=== PATIENT | male | born 1955 | race Caucasian/White ===

== ENCOUNTER → 2018-05-16 | Outpatient (CLI) | payer OTHER ==
--- NOTE | 2018-05-16 17:12 | US ---
EXAM DESCRIPTION: Breast,Right: Ultrasound CLINICAL HISTORY: 63 yearsMaleBREAST MASS. Palpable mass approximately 3 cm from the right nipple at the 700 clock location. A small skin lesion is noted. Patient says there was drainage from this lesion. Decreasing tenderness and smaller mass since taking Bactrim x 2 days. COMPARISON: None. TECHNIQUE: Transcutaneous scanning of the right breast utilizing alejandre-scale and Doppler modes. Scanning performed by the director epidemiology and Dr. Sorenson. FINDINGS: Irregular echogenic material in the subcutaneous adipose tissue within the mass is palpable. This material is approximately 3.2 x 3.2 cm. Small fluid collection less than 2 cm maximum length. A small anechoic tract extends to the skin corresponding to the skin lesion. IMPRESSION: Subcutaneous echogenic lesion, approximately 3 cm widest dimension, containing minimal fluid corresponding to palpable mass inferior and slightly lateral to the right nipple. Interpreted to be resolving inflammation from hair follicle or sweat gland. The FINDINGS and the FOLLOW-UP plan were reviewed in person with the patient after the examination. Written communication explaining the IMPRESSION and FOLLOW-UP will be mailed to the patient and referring care provider. Electronically signed by: Stevie Sorenson MD 05/16/2018 5:11 PM CDT
== END ==
LOC: US 09:46
PROVIDERS: ATTEND Family Medicine
DX: N63.0 Unspecified lump in unspecified breast (principal)

== ENCOUNTER → 2019-10-28 | Outpatient (CLI) | payer OTHER ==
--- NOTE | 2019-10-29 07:27 | US ---
EXAM DESCRIPTION: Liver CLINICAL HISTORY: 64 years Male, abdominal pain COMPARISON: None. FINDINGS: Right upper quadrant hepatic sonography demonstrates proximal aorta are normal at 2.7 cm in size with the distal aorta poorly visualized. The liver is borderline enlarged at 15.8 cm in length. Region of the pancreas is unremarkable with an echogenic appearance without focal cystic or solid mass. Liver is very difficult to penetrate and visualization of the posterior liver is limited. Fatty and/or fibrous infiltration of the liver suspected. Multiple simple cysts small to modest in size including the left lobe of the liver are noted gallbladder is distended and folded without evidence of wall thickening stones or acoustic shadowing. Pericholecystic edema is not apparent. A bilobed or two adjacent cysts in the right lobe of the liver with the entire complex measuring 2.8 x 5.4 cm is noted. Common bile duct is visualized in the hannah hepatis at 4.5 mm in diameter without intrahepatic dilatation. The right kidney is 11.3 cm in length. No cyst or mass or hydronephrosis noted. IMPRESSION: 1. Borderline hepatomegaly with very difficult to penetrate liver and difficult visualization of the posterior liver most consistent with fatty infiltration. 2. Small to modest benign cysts within the left and right lobe of the liver without solid mass identified. 3. Folded but otherwise normal-appearing gallbladder and normal biliary ductal system and right kidney. Electronically signed by: Toby Cruz MD 10/29/2019 7:26 AM [facility] [employer]ATE[employer]NALYSIS
== END ==
LOC: US 14:32
PROVIDERS: ATTEND Family Medicine
DX: R16.0 Hepatomegaly, not elsewhere classified (principal); K76.89 Other specified diseases of liver

== ENCOUNTER → 2019-11-14 | Outpatient (CLI) | payer OTHER ==
--- NOTE | 2019-11-14 19:58 | CT ---
EXAM DESCRIPTION: Abdomen/Pelvis w/wo Contrast: Computed Tomography. CLINICAL HISTORY: GENERALIZED ABDOMINAL PAIN COMPARISON: None. TECHNIQUE: Spiral-axial scans at 5 x 5 mm intervals through the abdomen and pelvis before and after 75 mL Optiray 320 nonionic IV contrast. Spiral-axial 0.6 x 5.0 mm axial reconstructions noncontrast. No oral contrast. Coronal and sagittal 2.0 mm reconstructions after delay. 5 mm Delayed helical-axial scans, liver through the pubic symphysis. No adverse reactions. Total Exam DLP 4301.83 mGy - cm. This exam was performed according to our departmental CT dose-optimization program which includes automated exposure control, adjustment of the mA and/or kV according to patient size and/or use of iterative reconstruction technique; to reduce radiation dose to as low as reasonably achievable (ALARA). FINDINGS: Lung bases and pleura: Atelectasis in the right lower lobe bibasilar pleural thickening more on the left. Liver, Stomach, Spleen, Adrenal Glands: Liver with heterogeneous low-density involving most of the liver with peripheral fatty sparing. Long axis right lobe 18.5 cm. Multiple fluid density objects in the liver consistent with cysts. Cysts at the inferior tip displacing the hepatic capsule. Heterogeneous enhancement of the liver with no cyst enhancement. Stomach and adrenal glands and spleen are negative. Pancreas, Gallbladder, Ducts: Gallbladder slightly elongated but not dilated and normal density of the surrounding fat. Duct and pancreas are negative. Kidneys and Ureters: Bilateral kidneys small with cortical thinning but no radiodense stones or hydronephrosis. Mesentery: No free fluid or free air. Aorta: Normal outer caliber with minimal atherosclerotic calcification. Small Bowel: Minimal gas and fluid distally but normal caliber throughout. Terminal Ileum/Cecum: Normal caliber. Also normal caliber of the appendix with no surrounding inflammatory changes or lymph nodes. Colon: Diverticula distal descending colon and sigmoid colon with no complications. No distention at any level. Pelvic Organs: No free fluid. Prostate gland impressing on the base of the urinary bladder. Spine and Bony Pelvis: Minimal bilateral hip arthrosis. No significant lumbar spondylosis. Abdominal Wall/Back Soft Tissues: Bilateral inguinal nodes. IMPRESSION: 1. Hepatomegaly and steatosis with multiple cysts. Decreased overall contrast enhancement. Smooth capsule with no ascites. 2. Minimal cortical thinning and decreased size of the bilateral kidneys. 3. Diverticulosis of the distal colon without complications. Electronically signed by: Stevie Sorenson MD 11/14/2019 7:56 PM COSMETIC ACCOUNT COORDINATOR
== END ==
LOC: CT 09:42
PROVIDERS: ATTEND Family Medicine
DX: K57.30 Diverticulosis of large intestine without perforation or abscess without bleeding (principal); K76.0 Fatty (change of) liver, not elsewhere classified; K76.89 Other specified diseases of liver; N28.9 Disorder of kidney and ureter, unspecified

== ENCOUNTER 2019-11-27 05:39 | Day surgery (SDC) | payer OTHER ==
[2019-11-27] MEDS ORDERED: LIDOCAINE 1% 10 ML VIAL INJ ONE (07:00)
[2019-11-27] MEDS ORDERED: GLYCOPYRROLATE 0.2 MG/ML VIAL ONE (07:00)
[2019-11-27] MEDS ORDERED: SODIUM CHLORIDE 0.9% 50 ML VIAL ONE (07:00)
[2019-11-27] MEDS ORDERED: PROPOFOL 200 MG/20 ML VIAL IV ONE (07:00)
[2019-11-27] MEDS ORDERED: LACTATED RINGERS 1,000 ML ONE (07:02)
[2019-11-27] MEDS ORDERED: MIDAZOLAM INJ 2 MG/2 ML VIAL ONE (07:51)
[2019-11-27] MEDS ORDERED: KETAMINE HCL 100 MG/ML VIAL ONE (07:55)
--- NOTE | 2019-11-27 10:07 | OP ---
DATE OF PROCEDURE: 11/27/19 PREOPERATIVE DIAGNOSIS: 1. History of colonic polyps. POSTOPERATIVE DIAGNOSIS: 1. Normal colon. PROCEDURE: 1. Colonoscopy. SURGEON: Rene Warner MD PROCEDURE: General anesthesia was induced in the lateral position. Digital rectal exam was normal. The colonoscope was inserted without difficulty and passed to the cecum identified by the appendiceal orifice and ileocecal valve. Upon careful withdrawal with an adequate prep, no polyps or inflammation was seen. The patient was having pain in the right side. Nothing abnormal was seen in the ascending or transverse colon. The rectum also appeared normal. He had very small hemorrhoids. The patient tolerated the procedure and was taken to Recovery to be discharged. #[id number] cc: Toby Selby MD MTDD
[2019-11-28 10:23] VITALS: TEMP 98.2
[2019-11-28 10:29] VITALS: BP 123/83; O2SAT 96
== END 2019-11-27 09:50 | disposition home or self-care (01) ==
LOC: AMB 05:39
PROVIDERS: ATTEND Surgery
DX: Z09 Encounter for follow-up examination after completed treatment for conditions other than malignant neoplasm (principal); K64.9 Unspecified hemorrhoids; E11.9 Type 2 diabetes mellitus without complications; M10.9 Gout, unspecified; E78.00 Pure hypercholesterolemia, unspecified; E03.9 Hypothyroidism, unspecified; Z88.5 Allergy status to narcotic agent; Z86.010 Personal history of colon polyps; Z79.82 Long term (current) use of aspirin; Z79.84 Long term (current) use of oral hypoglycemic drugs; Z79.899 Other long term (current) drug therapy
CPT/HCPCS: 00811; 36416; 45378; 82948; A4216; J2250; J3490; J7120

== ENCOUNTER 2020-09-13 12:55 | Outpatient (CLI) | payer OTHER | END 2020-09-14 10:24 | disposition home or self-care (01) | LOC: INFRM 12:55 | PROVIDERS: ATTEND Family Medicine | DX: U07.1 COVID-19 (principal) ==